=== PATIENT | female | born 2000 | race Caucasian/White ===

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

== ENCOUNTER 2021-02-01 14:45 | Emergency (ER) | payer OTHER ==
[2021-02-01 16:10] LABS: BASOPHIL 1.2 % (0-2); EOSINOPHIL 5.2 % (0-5); HCT 37.1 % (37.0-47.0); HGB 11.9 g/dl (12.5-16.0); LYMPHOCYTE 36.4 % (15-48); MCH 28.1 pg (25.0-31.0); MCHC 32.1 g/dL (32.0-36.0); MCV 87.7 fL (78.0-100.0); MONOCYTE 5.2 % (0-12); MPV 11.5 fL (6.0-9.5); NEUTROPHIL 51.8 % (41-80); NRBC 0; PLT 202 K/uL (150-400); RBC 4.23 M/uL (4.20-5.40); WBC 5.9 K/uL (4.0-10.5)
[2021-02-01 16:10] LABS: BILIRUBIN NEGATIVE (NEGATIVE); BLOOD NEGATIVE Ery/uL (NEGATIVE); CLARITY CLEAR (CLEAR); COLOR YELLOW (YELLOW); GLUCOSE (U) NORMAL (NORMAL); LEUKOCYTES NEGATIVE Leu/uL (NEGATIVE); NITRITE NEGATIVE (NEGATIVE); PROTEIN NEGATIVE (NEGATIVE); SPECIFIC GRAVITY 1.025 (1.001-1.030)
[2021-02-01 16:32] LABS: ALBUMIN 3.9 g/dL (3.4-5.0); BILIRUBIN - TOTAL 0.5 mg/dL (0.2-1.0); BUN/CREAT RATIO (CALC) 11.7 RATIO; CREATININE 0.77 mg/dL (0.51-0.95); GLOBULIN (CALCULATION) 2.9 g/dL; POTASSIUM 3.7 mmol/L (3.5-5.1); TOTAL PROTEIN 6.8 g/dL (6.4-8.2)
[2021-02-01] MEDS ORDERED: NAPROXEN500 MG PO (17:28)
== END 2021-02-01 17:44 | disposition home or self-care (01) ==
LOC: FER 14:45
PROVIDERS: Emergency Medicine
DX: R10.84 Generalized abdominal pain (principal); M54.5 Low back pain
CPT/HCPCS: 36415; 80053; 81003; 83690; 85025; 99284

== ENCOUNTER 2021-02-24 01:07 | Emergency (ER) | payer OTHER ==
[~2021-02-24 01:07] MED LIST changes: +NAPROXEN500 MG PO
[2021-02-24 01:55] LABS: BILIRUBIN NEGATIVE (NEGATIVE); BLOOD NEGATIVE Ery/uL (NEGATIVE); CLARITY CLEAR (CLEAR); COLOR YELLOW (YELLOW); GLUCOSE (U) NORMAL (NORMAL); LEUKOCYTES TRACE Leu/uL (NEGATIVE); NITRITE POSITIVE (NEGATIVE); PROTEIN NEGATIVE (NEGATIVE)
[2021-02-24 02:03] LABS: BASOPHIL 0.9 % (0-2); EOSINOPHIL 3.8 % (0-5); HCT 36.8 % (37.0-47.0); HGB 11.8 g/dl (12.5-16.0); LYMPHOCYTE 36.7 % (15-48); MCH 28.4 pg (25.0-31.0); MCHC 32.1 g/dL (32.0-36.0); MCV 88.5 fL (78.0-100.0); MONOCYTE 5.9 % (0-12); MPV 11.2 fL (6.0-9.5); NEUTROPHIL 52.6 % (41-80); NRBC 0; PLT 235 K/uL (150-400); RBC 4.16 M/uL (4.20-5.40); RDW 12.9 % (11.5-14.0); WBC 7.8 K/uL (4.0-10.5)
[2021-02-24 02:03] LABS: AMORPHOUS URATES CRYSTALS TRACE; BACTERIA 3+; MUCOUS TRACE; SQUAMOUS EPITHELIAL CELLS RARE
[2021-02-24 02:21] LABS: BILIRUBIN - TOTAL 0.3 mg/dL (0.2-1.0); BUN/CREAT RATIO (CALC) 10.4 RATIO; CREATININE 0.77 mg/dL (0.51-0.95); GLOBULIN (CALCULATION) 3.2 g/dL; POTASSIUM 3.2 mmol/L (3.5-5.1); TOTAL PROTEIN 7.2 g/dL (6.4-8.2)
[2021-02-24] MEDS ORDERED: BACTRIM DS TAB1 EACH PO (02:50)
== END 2021-02-24 03:15 | disposition home or self-care (01) ==
LOC: FER 01:07
PROVIDERS: Emergency Medicine
DX: N39.0 Urinary tract infection, site not specified (principal); Z87.442 Personal history of urinary calculi
CPT/HCPCS: 36415; 80053; 81001; 83690; 85025; 87076; 87088; 87186; J0696; J2405

== ENCOUNTER 2021-08-07 11:43 | Emergency (ER) | payer OTHER | END 2021-08-07 18:10 | disposition home or self-care (01) | LOC: FER 11:43 | DX: R07.81 Pleurodynia (principal); W19.XXXA Unspecified fall, initial encounter; Y92.89 Other specified places as the place of occurrence of the external cause; Y99.0 Civilian activity done for income or pay | CPT/HCPCS: 71101 ==

== ENCOUNTER 2021-08-31 19:37 | Emergency (ER) | payer OTHER ==
[2021-08-31 22:39] LABS: AMPHETAMINES NEGATIVE (NEGATIVE); BARBITURATES NEGATIVE (NEGATIVE); ECSTASY (MDMA) NEGATIVE (NEGATIVE); MARIJUANA (THC) NEGATIVE (NEGATIVE); METHADONE NEGATIVE (NEGATIVE); OPIATES NEGATIVE (NEGATIVE); OXYCODONE NEGATIVE (NEGATIVE)
== END 2021-08-31 23:06 | disposition home or self-care (01) ==
LOC: FER 19:37
PROVIDERS: Physician Assistant
DX: S00.01XA Abrasion of scalp, initial encounter (principal); S09.90XA Unspecified injury of head, initial encounter; Z23 Encounter for immunization; W23.0XXA Caught, crushed, jammed, or pinched between moving objects, initial encounter; Y92.89 Other specified places as the place of occurrence of the external cause; Y99.0 Civilian activity done for income or pay; Z28.310 Unvaccinated for COVID-19
CPT/HCPCS: 70450; 80305; 90471; 90714